=== PATIENT | female | born 1945 | race Caucasian/White ===

== ENCOUNTER 2017-01-13 12:34 | Day surgery (SDC) | payer OTHER ==
[~2017-01-13] VITALS: Ht 161.3 cm; Wt 70.0 kg
[~2017-01-13 12:34] MED LIST: BENADRYL25 MG PO; BUMETANIDE1 MG PO; BUPROPION XL300 MG PO; CARVEDILOL3.125 MG PO; CEFTIN500 MG PO; DEXILANT60 MG PO; ENTRESTO 24 MG1 EACH PO; FOLIC ACID1 MG PO; KLOR-CON M2020 MEQ PO; LASIX40 MG PO; LIPITOR40 MG PO; LOSARTAN POTASS25 MG PO; METHOTREXATE2.5 MG PO; POTASSIUM CHLO20 ME1 PO; RABEPRAZOLE SOD20 MG PO; RANITIDINE HCL300 MG PO; SPIRONOLACTONE25 MG PO; SYNTHROID25 MCG PO
[2017-01-13] MEDS ORDERED: COREG25 M1 PO (16:42)
[2017-01-13 18:19] VITALS: BP 108/63
[2017-01-13 19:21] VITALS: BP 96/53
[2017-01-13 23:11] VITALS: BP 121/73
[2017-01-14 03:16] VITALS: BP 108/64
[2017-01-14 08:57] VITALS: BP 107/67
[2017-01-14 12:20] VITALS: BP 88/56
[2017-01-14 16:00] VITALS: BP 114/71
[2017-01-14] MEDS ORDERED: ACETAMINOPHEN325 M3 PO (17:37)
== END 2017-01-14 18:34 | disposition home or self-care (01) ==
LOC: CATH 12:34 → 4EAST 15:10 → 2SOUTH 15:10 → 4EAST 17:59
DX: I50.9 Heart failure, unspecified (principal); I42.0 Dilated cardiomyopathy; J44.9 Chronic obstructive pulmonary disease, unspecified; E03.9 Hypothyroidism, unspecified; L93.0 Discoid lupus erythematosus; I73.00 Raynaud's syndrome without gangrene; E87.1 Hypo-osmolality and hyponatremia
CPT/HCPCS: 71010; 93005; C1769; C1887; C1892; C1894; C1895; C1898; C1899; G0378; J0690; J1200; J2250; J3010; S0020

== ENCOUNTER → 2018-01-01 | Outpatient (CLI) | payer OTHER ==
[~2018-01-01] VITALS: Ht 160 cm; Wt 65.8 kg
[~2018-01-01] MED LIST changes: +ACETAMINOPHEN325 M3 PO; +COREG25 M1 PO; +TRAMADOL HCL50 MG PO; +TRAZODONE HCL50 MG PO
== END | disposition home or self-care (01) ==
LOC: AMB 10:31
DX: Z12.11 Encounter for screening for malignant neoplasm of colon (principal); D12.2 Benign neoplasm of ascending colon; K64.8 Other hemorrhoids; K64.4 Residual hemorrhoidal skin tags; K57.30 Diverticulosis of large intestine without perforation or abscess without bleeding; K21.9 Gastro-esophageal reflux disease without esophagitis; K44.9 Diaphragmatic hernia without obstruction or gangrene; K31.7 Polyp of stomach and duodenum; I10 Essential (primary) hypertension; E78.5 Hyperlipidemia, unspecified; I42.9 Cardiomyopathy, unspecified; Z95.810 Presence of automatic (implantable) cardiac defibrillator; I73.00 Raynaud's syndrome without gangrene; E55.9 Vitamin D deficiency, unspecified; J44.9 Chronic obstructive pulmonary disease, unspecified; M32.9 Systemic lupus erythematosus, unspecified; Z87.891 Personal history of nicotine dependence; Z91.040 Latex allergy status
CPT/HCPCS: 88305; J3010

== ENCOUNTER 2018-07-08 22:05 | Inpatient (IN) | payer OTHER ==
[~2018-07-08] VITALS: Ht 162.6 cm; Wt 67.2 kg
[~2018-07-08 22:05] MED LIST changes: +ENTRESTO 49 MG1 EACH PO; +IRON325 M1 PO
[2018-07-09 09:57] VITALS: BP 123/65
[2018-07-09 15:36] VITALS: BP 128/59
[2018-07-09 19:53] VITALS: BP 98/64
[2018-07-10 00:20] VITALS: BP 118/58
[2018-07-10 04:00] VITALS: BP 99/50
[2018-07-10 06:16] LABS: HEMATOCRIT 29.1 % (36.0-46.0); HEMOGLOBIN 9.7 G/DL (11.9-15.5); MCV 92.1 FL (83-99)
[2018-07-10 06:32] LABS: CHLORIDE 99 MEQ/L (99-109); CREATININE 0.9 MG/DL (0.6-1.3); GFR ESTIMATE (CALCULATED) > 59 mL/min/; GLUCOSE 101 mg/dL (70-99); POTASSIUM 4.1 MEQ/L (3.7-5.4); SODIUM 133 MEQ/L (136-147); UREA NITROGEN (BUN) 14 mg/dL (9-23)
[2018-07-10 08:08] VITALS: BP 92/56
[2018-07-10 11:20] VITALS: BP 83/49
[2018-07-10 16:00] VITALS: BP 93/50
[2018-07-10 20:15] VITALS: BP 103/56
[2018-07-11 00:20] VITALS: BP 121/53
[2018-07-11 04:30] VITALS: BP 109/53
[2018-07-11 06:46] LABS: HEMATOCRIT 27.9 % (36.0-46.0); HEMOGLOBIN 9.6 G/DL (11.9-15.5); MCV 90.9 FL (83-99)
[2018-07-11 08:10] VITALS: BP 115/57
[2018-07-11] MEDS ORDERED: ELIQUIS2.5 MG PO (10:27)
[2018-07-11] MEDS ORDERED: OXYCODONE HCL5 MG PO (10:27)
[2018-07-11] MEDS ORDERED: CELECOXIB200 MG PO (10:27)
[2018-07-11 11:12] VITALS: BP 87/50
[2018-07-11 13:14] LABS: HEMOGLOBIN 9.4 G/DL (11.9-15.5); MCH 30.9 PG (29.0-34.0); MCHC 33.6 G/DL (30.0-36.0); MCV 92.1 FL (83-99); PLATELET COUNT 161 K/uL (156-360); RBC DIS.WIDTH-CV 13.1 % (11.8-14.6); RBC DIS.WIDTH-SD 43.3 % (39-53); RED BLOOD COUNT 3.04 M/uL (3.80-5.20); WHITE BLOOD COUNT 6.4 K/uL (4.1-10.2)
[2018-07-11 13:39] LABS: ALBUMIN 3.2 G/DL (3.2-4.8); ALKALINE PHOSPHATASE 143 IU/L (3-129); ALT (GPT) 16 IU/L (3-49); AST (GOT) 35 IU/L (2-34); CHLORIDE 95 MEQ/L (99-109); CREATININE 1.1 MG/DL (0.6-1.3); GFR ESTIMATE (CALCULATED) 52 mL/min/; GLUCOSE 113 mg/dL (70-99); POTASSIUM 4.2 MEQ/L (3.7-5.4); TOTAL BILIRUBIN 0.7 MG/DL (0.0-1.0); UREA NITROGEN (BUN) 13 mg/dL (9-23)
[2018-07-11 13:48] LABS: SODIUM 125 MEQ/L (136-147)
[2018-07-11 15:46] VITALS: BP 96/49
[2018-07-11 20:14] VITALS: BP 108/55
[2018-07-12 00:06] VITALS: BP 106/51
[2018-07-12 03:40] VITALS: BP 108/55
[2018-07-12 05:33] LABS: ALBUMIN 3.3 g/dL (3.2-4.8); CHLORIDE 95 mEq/L (99-109)
[2018-07-12 05:34] LABS: POTASSIUM 4.1 mEq/L (3.7-5.4); SODIUM 129 mEq/L (136-147)
[2018-07-12 05:36] LABS: GLUCOSE 95 mg/dL (70-99); TOTAL PROTEIN 5.3 g/dL (6.4-8.3)
[2018-07-12 05:38] LABS: TOTAL BILIRUBIN 0.6 mg/dL (0.0-1.0)
[2018-07-12 05:39] LABS: ALKALINE PHOSPHATASE 174 IU/L (3-129)
[2018-07-12 05:40] LABS: CREATININE 0.9 mg/dL (0.6-1.3); GFR ESTIMATE (CALCULATED) > 59 mL/min/; UREA NITROGEN (BUN) 12 mg/dL (9-23)
[2018-07-12 05:41] LABS: AST (GOT) 36 IU/L (2-34)
[2018-07-12 05:42] LABS: ALT (GPT) 16 IU/L (3-49)
[2018-07-12 07:17] VITALS: BP 124/56
[2018-07-12 11:27] VITALS: BP 82/40
[2018-07-12 12:58] VITALS: BP 98/55
== END 2018-07-12 15:40 | DRG 470 ==
LOC: ENRESERV 22:05 → 3WEST 07-09 09:26 → 2SOUTH 07-09 09:26 → 3WEST 07-09 15:18 → ENRESERV 07-09 15:20 → 3WEST 07-12 15:40
PROVIDERS: Orthopaedic Surgery; Physician Assistant
PROC: 0SRB04A Replacement of Left Hip Joint with Ceramic on Polyethylene Synthetic Substitute, Uncemented, Open Approach (ICD-10-PCS; principal; 2018-07-09)
DX: M16.12 Unilateral primary osteoarthritis, left hip (principal); I42.9 Cardiomyopathy, unspecified; E87.1 Hypo-osmolality and hyponatremia; J44.9 Chronic obstructive pulmonary disease, unspecified; Z95.0 Presence of cardiac pacemaker; K21.9 Gastro-esophageal reflux disease without esophagitis; I73.00 Raynaud's syndrome without gangrene; Z87.891 Personal history of nicotine dependence; M32.9 Systemic lupus erythematosus, unspecified; E78.00 Pure hypercholesterolemia, unspecified; I25.10 Atherosclerotic heart disease of native coronary artery without angina pectoris; I44.7 Left bundle-branch block, unspecified; I34.0 Nonrheumatic mitral (valve) insufficiency; D64.9 Anemia, unspecified; E03.9 Hypothyroidism, unspecified; I11.0 Hypertensive heart disease with heart failure; I50.9 Heart failure, unspecified; F32.9 Major depressive disorder, single episode, unspecified
CPT/HCPCS: 71045; 73501; 80048; 80053; 82948; 85014; 85018; 85027; C1713; J0131; J0690; J1885; J2250; J2405; J3010; J7030; J7050; S0020